=== PATIENT | female | born 1955 | race Caucasian/White ===

== ENCOUNTER → 2022-01-18 | Outpatient (REF) | payer MEDICARE, BC | LOC: M SFHCWAGY 16:46 | PROVIDERS: ATTEND Advanced Practice Midwife | DX: Z12.4 Encounter for screening for malignant neoplasm of cervix (principal); N95.8 Other specified menopausal and perimenopausal disorders ==

== ENCOUNTER → 2023-07-21 | Outpatient (CLI) | payer MEDICARE, BC | LOC: M SOG 07:57 | PROVIDERS: ATTEND Physician Assistant | DX: S92.152A Displaced avulsion fracture (chip fracture) of left talus, initial encounter for closed fracture (principal); Y93.9 Activity, unspecified; Y92.9 Unspecified place or not applicable ==

== ENCOUNTER → 2024-09-08 | Outpatient (CLI) | payer MEDICARE ==
[~2024-09-08] MED LIST: GASTROGRAFIN SOLUTION 30ML ONE; ISOVUE-370 76% 100ML VIAL ONE
== END ==
LOC: M PLAIMG 12:32
DX: R10.84 Generalized abdominal pain (principal); R15.9 Full incontinence of feces
CPT/HCPCS: 74177; Q9963; Q9967

== ENCOUNTER → 2024-09-14 | Outpatient (CLI) | payer MEDICARE | LOC: M SOG 07:52 | PROVIDERS: ATTEND Physician Assistant | DX: S92.15 Avulsion fracture (chip fracture) of talus (principal); X58.XXXS Exposure to other specified factors, sequela ==

== ENCOUNTER → 2025-02-08 | Outpatient (CLI) | payer MEDICARE, BC | LOC: M WHC 11:19 | PROVIDERS: ATTEND Family Medicine | DX: Z12.31 Encounter for screening mammogram for malignant neoplasm of breast (principal); R92.333 Mammographic heterogeneous density, bilateral breasts ==

== ENCOUNTER 2025-05-27 11:56 | Emergency (ER) | payer MEDICARE, BC ==
[~2025-05-27] VITALS: Ht 160 cm; Wt 66.8 kg
[2025-05-27 14:52] LABS: KETONE, URINE AUTO RFX NEGATIVE (NEGATIVE); LEUKOCYTE ESTERASE UR AUTO RFX NEGATIVE (NEGATIVE); NITRITE, URINE AUTO RFX NEGATIVE (NEGATIVE); RBC, URINE AUTO RFX 0 /HPF (0-3); SQUAM EPITHELIAL CELL UR AURFX 0 /HPF (0-6); WBC, URINE AUTO RFX 0 /HPF (0-3)
[2025-05-27] MEDS: ACETAMINOPHEN 500 MG TAB PO ONE (15:29)
[2025-05-27 16:51] VITALS: BP 169/78; TEMP 96.6; O2SAT 99
[2025-05-27] MEDS ORDERED: OXYC-1 PO ×2 (17:04→18:55)
[2025-05-27] MEDS ORDERED: OXYC-141 PO (17:06)
[2025-05-27] MEDS ORDERED: OXYC1CAP2 PO (18:57)
== END 2025-05-27 17:17 | disposition home or self-care (01) ==
LOC: M ED 11:56
DX: S63.502A Unspecified sprain of left wrist, initial encounter (principal); S30.0XXA Contusion of lower back and pelvis, initial encounter; W10.9XXA Fall (on) (from) unspecified stairs and steps, initial encounter; Y92.009 Unspecified place in unspecified non-institutional (private) residence as the place of occurrence of the external cause; Y93.89 Activity, other specified; Y99.9 Unspecified external cause status; E11.9 Type 2 diabetes mellitus without complications; I10 Essential (primary) hypertension; K21.9 Gastro-esophageal reflux disease without esophagitis; M79.7 Fibromyalgia; M43.02 Spondylolysis, cervical region; M19.041 Primary osteoarthritis, right hand; M43.06 Spondylolysis, lumbar region; M43.04 Spondylolysis, thoracic region